=== PATIENT | female | born 1995 | race Caucasian/White ===

== ENCOUNTER → 2020-03-08 15:54 | Outpatient (BNVA) | payer MEDICAID, SELFPAY | PROVIDERS: Visit Provider Advanced Practice Midwife | DX: Z76.89 Persons encountering health services in other specified circumstances (principal) ==

== ENCOUNTER → 2020-03-15 15:48 | Outpatient (BNVA) | payer MEDICAID, SELFPAY | PROVIDERS: Visit Provider Obstetrics & Gynecology | DX: Z76.89 Persons encountering health services in other specified circumstances (principal) ==

== ENCOUNTER → 2020-03-20 16:01 | Outpatient (BNVA) | payer MEDICAID, SELFPAY | PROVIDERS: Visit Provider Advanced Practice Midwife | DX: Z76.89 Persons encountering health services in other specified circumstances (principal) ==

== ENCOUNTER → 2020-05-03 09:30 | Outpatient (BNVA) | payer BC, MEDICAID, SELFPAY | PROVIDERS: Visit Provider Advanced Practice Midwife | DX: Z39.2 Encounter for routine postpartum follow-up (principal); Z13.31 Encounter for screening for depression | CPT/HCPCS: 99212 ==

== ENCOUNTER 2021-06-23 12:51 | Outpatient (REF) | payer OTHER, SELFPAY ==
[2021-06-23 16:25] LABS: CT PCR NOT DETECTED (Not Detect.); NG PCR NOT DETECTED (Not Detect.)
[2021-06-24 09:18] LABS: BV Int Neg Control Negative (Negative); BV Int Pos Control Positive (Positive)
== END 2021-06-23 12:52 | disposition home or self-care (01) ==
LOC: HO.LAB 12:51
PROVIDERS: Visit Provider Advanced Practice Midwife
DX: Z01.419 Encounter for gynecological examination (general) (routine) without abnormal findings (principal); Z11.3 Encounter for screening for infections with a predominantly sexual mode of transmission; Z11.8 Encounter for screening for other infectious and parasitic diseases; Z82.49 Family history of ischemic heart disease and other diseases of the circulatory system; Z83.3 Family history of diabetes mellitus
CPT/HCPCS: 87480; 87491; 87510; 87591; 87660; 88142

== ENCOUNTER → 2021-07-28 13:13 | Outpatient (BNVA) | payer OTHER, SELFPAY | PROVIDERS: Visit Provider Advanced Practice Midwife | DX: Z30.430 Encounter for insertion of intrauterine contraceptive device (principal) | CPT/HCPCS: 58300; 81025 ==

== ENCOUNTER 2021-09-25 09:12 | Outpatient (REF) | payer OTHER, SELFPAY ==
[2021-09-25 18:29] LABS: CT PCR NOT DETECTED (Not Detect.); NG PCR NOT DETECTED (Not Detect.)
[2021-09-26 13:08] LABS: BV Int Neg Control Negative (Negative); BV Int Pos Control Positive (Positive)
== END 2021-09-25 09:13 | disposition home or self-care (01) ==
LOC: HO.LAB 09:12
PROVIDERS: Visit Provider Advanced Practice Midwife
DX: Z30.431 Encounter for routine checking of intrauterine contraceptive device (principal); N92.1 Excessive and frequent menstruation with irregular cycle; R10.2 Pelvic and perineal pain; Z20.2 Contact with and (suspected) exposure to infections with a predominantly sexual mode of transmission
CPT/HCPCS: 81025; 87480; 87491; 87510; 87591; 87660; 99212

== ENCOUNTER 2021-10-03 12:48 | Outpatient (REF) | payer OTHER, SELFPAY ==
--- NOTE | ~2021-10-03 | US_ITS ---
EXAMINATION: US PELVIS CLINICAL INFORMATION: Breakthrough bleeding with IUD, cramping prolonged since IUD insertion July 2021. COMPARISON: None TECHNIQUE: Ultrasound of the pelvis is performed using both transabdominal and transvaginal transducers along with Doppler. Transvaginal imaging is performed due to inadequate visualization transabdominally. FINDINGS: The uterus is heterogeneous and measures 8.4 x 4.4 x 5.1 cm. Uterus is retropositioned, limiting visualization. Endometrial thickness 0.5 cm. No significant free fluid. IUD appears to be in place within the endometrial cavity. Right ovary is unremarkable and measures 3.5 x 2.3 x 2.0 cm, volume 8.5 mL. Left ovary measures 3.4 x 2.5 x 2.8 cm, volume 12.6 cm. There is a 2.4 x 1.7 x 2.2 cm complex left ovarian cyst with septations. US/US pelvic and transvaginal IMPRESSION: 1. IUD in place within the endometrial cavity. 2. Retropositioned uterus limits visualization. 3. Mildly complex 2.4 cm left ovarian cyst with septation. Recommend follow-up ultrasound in 6-8 weeks.
== END 2021-10-03 12:49 | disposition home or self-care (01) ==
LOC: HO.HMGCX 12:48
PROVIDERS: Visit Provider Advanced Practice Midwife
DX: R10.2 Pelvic and perineal pain (principal); N92.1 Excessive and frequent menstruation with irregular cycle; N83.292 Other ovarian cyst, left side; Q50.39 Other congenital malformation of ovary; Z97.5 Presence of (intrauterine) contraceptive device
CPT/HCPCS: 76830; 76856

== ENCOUNTER → 2021-10-17 11:16 | Outpatient (BNVA) | payer OTHER, SELFPAY | PROVIDERS: PCP Internal Medicine; Visit Provider Advanced Practice Midwife | DX: R10.2 Pelvic and perineal pain (principal) ==

== ENCOUNTER 2021-11-26 11:22 | Outpatient (REF) | payer OTHER, SELFPAY ==
--- NOTE | ~2021-11-26 | US_ITS ---
EXAMINATION: US PELVIS CLINICAL INFORMATION: Left ovarian cyst. COMPARISON: October 03, 2021 TECHNIQUE: Ultrasound of the pelvis is performed using both transabdominal and transvaginal transducers along with Doppler. Transvaginal imaging is performed due to inadequate visualization transabdominally. FINDINGS: Uterus: The uterus is retroverted and retroflexed and measures 8.2 x 3.2 x 4.9 cm. The double wall endometrial thickness is 2 mm. An IUD is seen in place and appears to be low in position and is difficult to tell if one of the arms may be partially penetrating into the myometrium. No penetration of the wall of the uterus is identified. The uterus is smooth in contour and has normal myometrial echogenicity. No visible fibroid. Adnexa: Both ovaries are visualized. There is normal color flow to the adnexa. There is no ovarian torsion. There is no pelvic ascites or fluid collection. Right ovary measures 3.7 x 2.4 x 2.3 cm. Volume of 10.7 mL. Left ovary measures 3.8 x 2.1 x 2.2 cm. Volume of 9.2 mm. Previously noted cyst is not seen. US/US pelvic and transvaginal IMPRESSION: Low-lying IUD with difficulty telling if there may be some myometrial penetration but without uterine wall penetration. Resolution of left ovarian cyst.
== END 2021-11-26 11:23 | disposition home or self-care (01) ==
LOC: HO.US 11:22
PROVIDERS: Visit Provider Advanced Practice Midwife
DX: N83.299 Other ovarian cyst, unspecified side (principal)
CPT/HCPCS: 76830; 76856

== ENCOUNTER → 2021-12-10 10:36 | Outpatient (BNVA) | payer OTHER, SELFPAY | PROVIDERS: PCP Internal Medicine; Visit Provider Advanced Practice Midwife | DX: Z30.432 Encounter for removal of intrauterine contraceptive device (principal); Z32.02 Encounter for pregnancy test, result negative | CPT/HCPCS: 58301; 81025 ==

== ENCOUNTER 2022-06-24 12:57 | Outpatient (REF) | payer OTHER, SELFPAY ==
[2022-06-25 01:58] LABS: CT PCR NOT DETECTED (Not Detect.); NG PCR NOT DETECTED (Not Detect.)
== END 2022-06-24 12:58 | disposition home or self-care (01) ==
LOC: HO.LNP 12:57
PROVIDERS: PCP Internal Medicine; Visit Provider Advanced Practice Midwife
DX: Z11.3 Encounter for screening for infections with a predominantly sexual mode of transmission (principal); Z20.2 Contact with and (suspected) exposure to infections with a predominantly sexual mode of transmission
CPT/HCPCS: 0353U